=== PATIENT | female | born 1950 | race Caucasian/White ===

== ENCOUNTER 2018-05-09 08:12 | Outpatient (CLI) | payer OTHER ==
[2018-05-09] MEDS ORDERED: LANTUS (11:13)
[2018-05-09] MEDS ORDERED: GLIMEPIRIDE PO (11:14)
== END 2018-05-09 08:16 | disposition home or self-care (01) ==
LOC: LAB 08:12
DX: C18.5 Malignant neoplasm of splenic flexure (principal); Z51.81 Encounter for therapeutic drug level monitoring

== ENCOUNTER 2018-05-09 10:10 | Inpatient (IN) | payer OTHER ==
[~2018-05-09] VITALS: Ht 154.9 cm; Wt 95.3 kg
[2018-05-09] MEDS ORDERED: LANTUS (11:13)
[2018-05-09] MEDS ORDERED: GLIMEPIRIDE PO (11:14)
[2018-05-12] MEDS ORDERED: GLIMEPIRIDE4 MG PO (14:28)
[2018-05-14] MEDS ORDERED: PERCOCET 5-3251 EACH PO (09:40)
[2018-05-14] MEDS ORDERED: INTESTINEX680 M1 PO (09:40)
== END 2018-05-14 10:22 | disposition home or self-care (01) | DRG 330 ==
LOC: EDUNIT# 13:30 → SURG 05-11 06:32 → O/R 05-11 06:32 → SURG 05-11 13:30 → SURH 05-13 12:16
PROVIDERS: Surgery
PROC: 07TC4ZZ Resection of Pelvis Lymphatic, Percutaneous Endoscopic Approach (ICD-10-PCS; 2018-05-11)
PROC: 0DJD8ZZ Inspection of Lower Intestinal Tract, Via Natural or Artificial Opening Endoscopic (ICD-10-PCS; 2018-05-11)
PROC: 0DTN4ZZ Resection of Sigmoid Colon, Percutaneous Endoscopic Approach (ICD-10-PCS; principal; 2018-05-11 21:00)
DX: C19 Malignant neoplasm of rectosigmoid junction (principal); K57.32 Diverticulitis of large intestine without perforation or abscess without bleeding